=== PATIENT | female | born 1955 | race Caucasian/White ===

== ENCOUNTER 2023-11-29 11:55 | Emergency (ER) | payer OTHER ==
[~2023-11-29] VITALS: Ht 160 cm; Wt 67.1 kg
[2023-11-29] MEDS ORDERED: TDAP [DIPH/PERTUSSIS/TET] 0.5 ML VIAL IM ONE (13:25)
[2023-11-29] MEDS ORDERED: IBUPROFEN 600 MG TABLET ONE (13:25)
[2023-11-29] MEDS: TDAP [DIPH/PERTUSSIS/TET] 0.5 ML VIAL IM ONE (13:27)
[2023-11-29] MEDS: IBUPROFEN 600 MG TABLET PO ONE (13:27)
[2023-11-29] MEDS ORDERED: IBUP-1953 PO (14:15)
[2023-11-29 15:16] VITALS: BP 158/81; TEMP 97.9; O2SAT 99
== END 2023-11-29 15:16 | disposition home or self-care (01) ==
LOC: ER 12:25
DX: S80.02XA Contusion of left knee, initial encounter (principal); Z88.2 Allergy status to sulfonamides; W01.0XXA Fall on same level from slipping, tripping and stumbling without subsequent striking against object, initial encounter; Y93.89 Activity, other specified; Y92.89 Other specified places as the place of occurrence of the external cause; Y99.8 Other external cause status
CPT/HCPCS: 73564-TC; 90715